=== PATIENT | male | born 1970 | race Caucasian/White ===

== ENCOUNTER → 2022-01-20 13:46 | Outpatient (CLI) | payer MEDICAID, SELFPAY ==
--- NOTE | 2022-01-20 13:51 | CT_ITS ---
FINAL REPORT CLINICAL HISTORY: CIGARETTE SMOKER MOTIVATED TO QUIT SMOKER, 2 PPD X 15 YEARS. EXPOSED TO 2ND HAND SMOKE. FINDINGS: Low-Dose Chest CT Axial images were obtained from the lung apex to the mid abdomen by computed tomography. Low-dose protocol was utilized. CTDI vol (mGy): 2.90 DLP (mGy-cm): 117.77 There is no axillary adenopathy. There is no hilar or mediastinal adenopathy. The heart is proper size. There is a right-sided aortic arch as a normal variant. There is no pericardial or pleural effusion. Limited images of the upper abdomen are unremarkable. Lung window images demonstrate a left lower lobe nodule measuring 5 mm favoring a granuloma or intrafissural lymph node. IMPRESSION: Left lower lobe nodule, likely benign. Lung RADS category 2. Recommend 12 month follow-up low-dose chest CT. Reviewed, Interpreted and Dictated by Juan David Magallon MD Transcribed by Nava Panchal Authenticated and . [facility]
== END ==
PROVIDERS: PCP Family Medicine; Visit Provider Family Medicine
DX: Z87.891 Personal history of nicotine dependence (principal); Z12.2 Encounter for screening for malignant neoplasm of respiratory organs
CPT/HCPCS: 71271

== ENCOUNTER 2022-05-24 17:00 | Outpatient (RCR) | payer MEDICAID, SELFPAY | END 2022-05-24 17:05 | disposition home or self-care (01) | LOC: PT 17:00 | PROVIDERS: PCP Family Medicine; Visit Provider Orthopaedic Surgery | DX: M79.671 Pain in right foot (principal) | CPT/HCPCS: 97012; 97110; 97163 ==

== ENCOUNTER → 2022-06-21 11:19 | Outpatient (CLI) | payer MEDICAID, SELFPAY ==
--- NOTE | 2022-06-21 11:20 | MR_ITS ---
FINAL REPORT TECHNIQUE: Multiplanar and multisequence imaging of the lumbar spine was obtained without contrast. CLINICAL HISTORY: low back pain, numbness and tingling down right leg FINDINGS: There is normal alignment of the lumbar vertebral bodies. Vertebral body height is preserved. The spinal cord ends at the level of L1. There is normal signal intensity within the substance of the distal spinal cord. Bone marrow signal intensity is normal. No acute paraspinal abnormality is identified. L1-2: There is no focal disc herniation, central canal stenosis or neuroforaminal narrowing. L2-3: There is no focal disc herniation, central canal stenosis or neuroforaminal narrowing. L3-4: There is mild bilateral foraminal narrowing related to facet osteoarthropathy. L4-5: An annular bulge is present with degenerative endplate changes and facet osteoarthropathy. There is severe central stenosis and bilateral neural foraminal narrowing. L5-S1: An annular bulge is present with degenerative endplate changes and facet osteoarthropathy. There is moderate to severe central stenosis and bilateral neural foraminal narrowing. IMPRESSION: Multilevel degenerative disc disease, most pronounced at L4-5. Reviewed, Interpreted and Dictated by Melina Gant MD Transcribed by Jane Marcus Authenticated and [facility]
== END ==
PROVIDERS: PCP Emergency Medicine; Visit Provider Emergency Medicine
DX: M54.50 Low back pain, unspecified (principal)
CPT/HCPCS: 72148; 76376

== ENCOUNTER → 2022-08-03 10:51 | Outpatient (POV) | payer MEDICAID, SELFPAY ==
[2022-08-03 11:20] VITALS: BP 156/107; PULSE 77; RESP 18; O2SAT 98; BMI 20.2
--- NOTE | 2022-08-03 12:11 | EXP.PAIN.OV ---
HPI Data of Consult Patient: new to practice Consult date: 08/03/22 Requesting Physician: Renee Ch APRN Primary Care Provider: Karlo Riley MD Consult Narrative Reason for consult: Low back pain, right hip pain, right leg pain History of present illness: Mr. Murry is a 51 year old male who presents today as a new patient. He is a referral from Dr. Riley's office. Today he rates his pain a 7 out of 10. Patient states his pain is all in his low back with radiating symptoms into his right hip and leg as well as right foot numbness. Patient states this has been going on for several years and is unrelated to any specific injury or trauma. He does describe it as a constant dull ache with occasional sharp pains depending on his positioning. He does state that driving frequently worsens his pain. He does have difficulty performing activities of daily living such as cooking and cleaning due to his symptoms. Patient has done and completed 6 weeks of physical therapy and he states it has helped. He states he has used [id number] ibuprofen and Tylenol along with lidocaine patches with minimal improvement. He is currently managed with Percocet 7.5 mg 3 times a day, Celebrex 200 mg twice daily and gabapentin 100 mg 3 times [address] day [address] Dr[address] Riley's office. Patient denies any side effects from these medications. He states that Dr. Riley is sending him to a orthospine surgeon there at [place]. He states that he does have an upcoming appointment in the next couple of weeks. His [place] is [phone]. Its been reviewed and appropriate. CC: Renee Ch APRN [facility] Disclaimer: The information contained in this section may have been updated after the patient was seen, as this information can be updated by other users. Medical History Right tennis elbow Family History Other Family history of COPD (chronic obstructive pulmonary disease) Family history of diabetes mellitus type II Social History (Updated 08/03/22 @ 11:20 by Mary Mendoaz RN) Smoking Status: Current every day smoker tobacco type: cigarettes packs per day: 1 alcohol intake: current current occupational status: employed Travel in the last 8 weeks: None Review of Systems Review of Systems Review of systems:: pertinent systems reviewed and negative unless documented below Review of systems (narrative): Review of Systems: General: No recent weight changes, no fever, no sleep disturbances Respiratory: No cough, no shortness of air, no recurring pulmonary infections Cardiovascular/peripheral vascular: No chest pain, no palpitations, no edema, no shortness of breath Gastrointestinal: No new onset incontinence, normal bowel movements reported Genitourinary: No new onset incontinence Musculoskeletal: Low back pain, right leg pain, right hip pain Psychiatric: [Normal mood/affect] Neurological: [Denies weakness in extremities], [denies balance issues] Meds Home Medications and Allergies Home Medications Medication Instructions Recorded Confirmed Type celecoxib 200 mg capsule 200 mg PO BID Pain 06/05/22 08/03/22 History sildenafil 100 mg tablet 100 mg PO NEEDED PRN N/A 06/05/22 08/03/22 History gabapentin 100 mg capsule 100 mg PO TID Pain 08/03/22 08/03/22 History oxycodone-acetaminophen 7.5 mg-325 1 tab PO TID Pain 08/03/22 08/03/22 History mg tablet (Percocet) New Prescriptions to Start Prescriptions: Allergies Allergy/AdvReac Type Severity Reaction Status Date / Time No Known Allergies Allergy Verified 07/03/22 13:57 Objective Vital signs: Pulse Resp BP Pulse Ox 77 18 156/107 H 98 08/03/22 11:20 08/03/22 11:20 08/03/22 11:20 08/03/22 11:20 Narrative: Physical Exam: General: Alert and oriented x3, no acute distress, pleasant and cooperative Lungs: Respirations even and unlabored, symm
== END ==
PROVIDERS: PCP Emergency Medicine; Visit Provider Nurse Practitioner Family
DX: M51.16 Intervertebral disc disorders with radiculopathy, lumbar region (principal); M48.062 Spinal stenosis, lumbar region with neurogenic claudication; M79.604 Pain in right leg; M25.551 Pain in right hip
CPT/HCPCS: 99202; G0463

== ENCOUNTER → 2022-11-01 11:00 | Outpatient (CLI) | payer MEDICAID, SELFPAY ==
[2022-11-01 18:58] LABS: Basophils % 0.3 % (0.1-2.0); Eosinophils # 0.4 K/mm3 (0.0-0.4); Eosinophils % 4.8 % (0.1-12.0); Hematocrit 40.4 % (42.0-52.0); Hemoglobin 12.9 g/dL (14.1-18.0); Lymphocytes # 2.7 K/mm3 (0.7-4.5); Lymphocytes % 28.9 % (10-50); Mean Corpuscular HGB Conc 31.9 g/dL (31.8-35.4); Mean Corpuscular Hemoglobin 32.2 pg (27.0-31.2); Mean Corpuscular Volume 100.9 fl (80-94); Monocytes # 0.8 K/mm3 (0.1-1.0); Monocytes % 8.6 % (1.7-9.3); Neutrophils # 5.3 K/mm3 (1.8-7.8); Neutrophils % 57.3 % (37.0-80.0); Platelet Count 383 K/mm3 (142-424); Red Cell Distribution Width 12.1 % (11.5-17.5); White Blood Count 9.2 K/mm3 (4.8-10.8)
[2022-11-01 19:12] LABS: Alanine Aminotransferase 22 U/L (12-78); Albumin Level 4.4 g/dl (3.5-5.0); Albumin/Globulin Ratio 1.7 (1.1-1.8); Alkaline Phosphatase 81 U/L (38-126); Aspartate Amino Transferase 38 U/L (17-59); Bilirubin,Total 0.3 mg/dl (0.2-1.3); Blood Urea Nitrogen 6 mg/dl (9-20); Calcium 9.2 mg/dl (8.4-10.2); Carbon Dioxide 29 mmol/L (22.0-30.0); Chloride 107 mmol/L (98-107); Chol/HDL Ratio 2.6 (1-3.5); Cholesterol 204 mg/dl (140-200); Estimated Glomerular Filt Rate 143 ml/min (>60); GFR (African American) 173 ML/MIN (>60); Globulin 2.6 g/dL (1.3-3.2); Glucose 104 mg/dl (74-100); HDL Cholesterol 79 mg/dl (40-60); Sodium 142 mmol/L (136-145); Triglycerides 51 mg/dl (30-150); VLDL Cholesterol 10 mg/dL (0-40)
[2022-11-01 19:34] LABS: Direct LDL Cholesterol 107.69 mg/dL (100-129)
[2022-11-01 19:35] LABS: Free T4 (Free Thyroxine) 1.04 ng/dl (0.78-2.19)
[2022-11-01 19:40] LABS: 25-OH Vitamin D, Total 21.5 ng/mL (30-100)
[2022-11-01 19:46] LABS: Prostate Specific Ag Screen 0.4 ng/ml (0.0-4.0)
[2022-11-02 14:57] LABS: Iron 80 ug/dL (49-181)
[2022-11-02 15:06] LABS: Total Iron Binding Capacity 175 ug/dL (261-462)
[2022-11-02 15:33] LABS: Ferritin 207 ng/ml (17.9-464)
== END ==
PROVIDERS: PCP Emergency Medicine; Visit Provider Emergency Medicine
DX: M51.36 Other intervertebral disc degeneration, lumbar region (principal); D64.9 Anemia, unspecified; Z72.0 Tobacco use; Z12.5 Encounter for screening for malignant neoplasm of prostate; E55.9 Vitamin D deficiency, unspecified
CPT/HCPCS: 80053; 80061; 82306; 82728; 83540; 83550; 84439; 84443; 85025; G0103

== ENCOUNTER 2023-04-27 09:41 | Outpatient (CLI) | payer MEDICAID, SELFPAY ==
[2023-04-27 23:51] LABS: Amphetamine/Metha Screen,Urine Negative ng/ml (<1000); Barbiturates Screen,Urine Negative ng/ml (<200); Benzodiazepines Screen,Urine Negative ng/ml (<200); Cannabinoid Screen,Urine Negative ng/ml (<50); Cocaine Screen,Urine Negative ng/ml (<300); Methadone Screen,Urine Negative ng/ml (<300); Opiate Screen,Urine Negative ng/ml (<300); Phencyclidine Screen,Urine Negative ng/ml (<25)
[2023-05-02 09:14] LABS: Opiates Negative (Cutoff=100); Oxycodone (GC/MS) 2743 ng/mL (Cutoff=100); Oxymorphone (GC/MS) 1602 ng/mL (Cutoff=100)
== END 2023-04-27 23:59 ==
LOC: LAB.DROPOF 04-28 09:42
PROVIDERS: PCP Internal Medicine; Visit Provider Internal Medicine
DX: Z79.899 Other long term (current) drug therapy (principal); M51.16 Intervertebral disc disorders with radiculopathy, lumbar region
CPT/HCPCS: 80307; 80361; 80365; G0480

== ENCOUNTER 2023-05-22 21:21 | Outpatient (CLI) | payer MEDICAID, SELFPAY ==
[2023-05-22 19:34] LABS: Vitamin B12 701 pg/mL (239-931)
== END 2023-05-22 23:59 ==
LOC: LAB.DROPOF 21:22
PROVIDERS: PCP Internal Medicine; Visit Provider Internal Medicine
DX: E53.8 Deficiency of other specified B group vitamins (principal)
CPT/HCPCS: 82607

== ENCOUNTER 2023-08-14 18:00 | Outpatient (CLI) | payer MEDICAID, SELFPAY ==
[2023-08-14 18:32] LABS: Basophils % 0.4 % (0.1-2.0); Eosinophils # 0.1 K/mm3 (0.0-0.4); Lymphocytes # 2.9 K/mm3 (0.7-4.5); Mean Corpuscular HGB Conc 31.7 g/dL (31.8-35.4); Mean Corpuscular Hemoglobin 32.9 pg (27.0-31.2); Mean Corpuscular Volume 103.7 fl (80-94); Mean Platelet Volume 7.6 fl (7.4-10.4); Monocytes # 0.5 K/mm3 (0.1-1.0); Monocytes % 5.5 % (1.7-9.3); Neutrophils # 4.9 K/mm3 (1.8-7.8); Neutrophils % 59.1 % (37.0-80.0); Platelet Count 416 K/mm3 (142-424); Red Blood Count 4.24 M/mm3 (4.60-6.20); Red Cell Distribution Width 12.6 % (11.5-17.5); White Blood Count 8.4 K/mm3 (4.8-10.8)
[2023-08-14 19:00] LABS: Alanine Aminotransferase 21 U/L (12-78); Albumin Level 4.6 g/dl (3.5-5.0); Albumin/Globulin Ratio 1.9 (1.1-1.8); Alkaline Phosphatase 66 U/L (38-126); Anion Gap 11.7 mEq/L (5-15); Aspartate Amino Transferase 34 U/L (17-59); Bilirubin,Total 0.5 mg/dl (0.2-1.3); Blood Urea Nitrogen 5 mg/dl (9-20); Carbon Dioxide 30 mmol/L (22.0-30.0); Chloride 105 mmol/L (98-107); Estimated Glomerular Filt Rate 142 ml/min (>60); GFR (African American) 172 ML/MIN (>60); Globulin 2.4 g/dL (1.3-3.2); Glucose 88 mg/dl (74-100); Potassium 4.7 mmoL/L (3.5-5.1); Sodium 142 mmol/L (136-145)
[2023-08-14 19:11] LABS: 25-OH Vitamin D, Total 97.5 ng/mL (30-100)
[2023-08-14 20:06] LABS: Vitamin B12 785 pg/mL (239-931)
[2023-08-14 20:08] LABS: Folate > 20.00 ng/mL
[2023-08-14 20:16] LABS: Iron 111 ug/dL (49-181)
[2023-08-14 20:26] LABS: Total Iron Binding Capacity 154 ug/dL (261-462)
[2023-08-14 20:53] LABS: Ferritin 160 ng/ml (17.9-464)
[2023-08-16 17:55] LABS: Peripheral Smear Review Scanned Result
== END 2023-08-14 23:59 | disposition home or self-care (01) ==
LOC: LAB.DROPOF 08-15 10:16
PROVIDERS: PCP Internal Medicine; Visit Provider Internal Medicine
DX: R53.83 Other fatigue (principal); D64.9 Anemia, unspecified
CPT/HCPCS: 80053; 82306; 82607; 82728; 82746; 83540; 83550; 85025

== ENCOUNTER 2023-09-11 18:00 | Outpatient (CLI) | payer MEDICAID, SELFPAY ==
[2023-09-11 18:53] LABS: Basophils % 0.5 % (0.1-2.0); Eosinophils # 0.2 K/mm3 (0.0-0.4); Hematocrit 42.6 % (42.0-52.0); Hemoglobin 13.3 g/dL (14.1-18.0); Lymphocytes # 2.5 K/mm3 (0.7-4.5); Lymphocytes % 29.6 % (10-50); Mean Corpuscular HGB Conc 31.2 g/dL (31.8-35.4); Mean Corpuscular Hemoglobin 32.5 pg (27.0-31.2); Mean Platelet Volume 8.4 fl (7.4-10.4); Monocytes # 0.6 K/mm3 (0.1-1.0); Monocytes % 6.9 % (1.7-9.3); Neutrophils # 5.2 K/mm3 (1.8-7.8); Platelet Count 453 K/mm3 (142-424); Red Blood Count 4.09 M/mm3 (4.60-6.20); Red Cell Distribution Width 12.5 % (11.5-17.5); White Blood Count 8.5 K/mm3 (4.8-10.8)
== END 2023-09-11 23:59 | disposition home or self-care (01) ==
LOC: LAB.DROPOF 09-12 09:22
PROVIDERS: PCP Internal Medicine; Visit Provider Internal Medicine
DX: D64.9 Anemia, unspecified (principal)
CPT/HCPCS: 85025

== ENCOUNTER 2023-10-05 15:23 | Outpatient (CLI) | payer MEDICAID, SELFPAY ==
--- NOTE | 2023-10-05 15:24 | CT_ITS ---
FINAL REPORT TECHNIQUE: Thin section axial images were obtained from the lung apices to the upper abdomen by computed tomography. Reformatted images were obtained and reviewed. This study was performed with techniques to keep radiation doses al low as reasonably achievable (ALARA). Individualized dose reduction techniques using automated exposure control or adjustment of mA and/or kV according to the patient's size were employed. 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 There is no axillary adenopathy. There is no mediastinal or hilar mass or adenopathy. The heart is normal in size. There is no pericardial or pleural effusion. There is mild emphysema and mild pulmonary scarring. There is a 4 mm nodule at the left major fissure which is stable. Limited images of the upper abdomen are unremarkable. IMPRESSION: Lung-RADS category 1. Recommend 12 month follow up low dose chest CT. Reviewed, Interpreted and Dictated by Harish James III, MD Transcribed by Jane Marcus Authenticated and . [facility]
== END 2023-10-05 23:59 | disposition home or self-care (01) ==
LOC: RAD 15:24
PROVIDERS: PCP Internal Medicine; Visit Provider Internal Medicine
DX: F17.210 Nicotine dependence, cigarettes, uncomplicated (principal)
CPT/HCPCS: 71271

== ENCOUNTER 2024-01-10 09:57 | Day surgery (SDC) | payer MEDICAID, SELFPAY ==
[2024-01-03 13:06] VITALS: BMI 19.0
--- NOTE | 2024-01-10 10:14 | P.PNANES_ITS ---
[facility] Disclaimer: The information contained in this section may have been updated after the patient was seen, as this information can be updated by other users. Medical History Right tennis elbow Surgical History No history of previous surgery Family History Other Family history of COPD (chronic obstructive pulmonary disease) Family history of diabetes mellitus type II Social History Smoking Status: Current every day smoker tobacco type: cigarettes packs per day: 1 alcohol intake: never substance use type: denies use current occupational status: employed Travel in the last 8 weeks: None [facility] Anesthesia Checklist Patient Identification Patient Identification: Arm Band and Verbal (Name & ) Structural Data Admitted From: Home Planned Operative Procedure/s: Colonoscopy Consent for Planned Operative Procedure(s) Verified: Yes Verified Documents: Surgical Consent and History and Physical NPO Status Verified Time NPO: 00:00 Additional verifications Anesthesia Reactions: No Airway Assessment Mallampati Score:: Class II C-Spine Mobility Assessed: Yes TMJ Mobility Assessed: Yes Dentition: Poor Dentition Neurological Assessment Level of Consciousness: Awake Hx Seizures: No Numbness or tingling in extremities: No Anesthesia Plan Anesthesia Risk discussed: Yes Anesthesia Plan: Verified ASA Class: II Anesthesia Type: MAC
[2024-01-10 10:19] VITALS: BP 114/76; PULSE 61; RESP 16; TEMP 36.4; O2SAT 98
[2024-01-10] MEDS: LACTATED RINGERS 1000ML 1,000 ML 25 ML IV (10:20)
[2024-01-10 10:32] VITALS: O2SAT 98
[2024-01-10 11:03] VITALS: BP 102/70; PULSE 73; RESP 16; TEMP 36.5; O2SAT 100
--- NOTE | 2024-01-10 11:04 | HMH.PROCNOTE ---
[facility] Procedure Note Date: 01/10/24 Time: 11:04 Procedure Note:: Colonoscopy Procedure Report: Colonoscopy with cold snare polypectomy Endoscopist: Osei Clark II, MD Referring physician: Rick Mahoney MD Date of Procedure: 01/10/2024 Equipment: Olympus 190 variable stiffness pediatric colonoscope Sedation: MAC sedation Indication: Mr. Murry is a 53-year-old gentleman who is here for initial screening colonoscopy. He reports no abdominal pain, weight loss, change in his bowel habits or rectal bleeding. He reports no family history of colon cancer. Procedure: Prior to the procedure, a history and physical exam was performed, and patient's medications and allergies were reviewed. The risks, benefits and alternatives of the sedation and procedure were discussed with the patient. All questions were answered and informed consent was obtained. The patient was brought to the procedure room. Patient identification and proposed procedure were verified by the physician and the nurse. The patient was placed in a left lateral decubitus position and the scope was passed under direct vision. Throughout the procedure, the patient's blood pressure, pulse, and oxygen saturations were monitored continuously. The colonoscopy was accomplished without difficulty. The patient tolerated the procedure well. Findings: On digital rectal examination there was normal rectal tone. There were no external hemorrhoids. The colonoscope was introduced through the anal canal to the rectum and advanced to the cecum. The ileocecal valve and appendiceal orifice were identified. The scope was advanced a short distance into the ileum which appeared grossly normal. The scope was then withdrawn into the colon. There were 2 colon polyps identified in the rectosigmoid. These were 4 and 6 mm in size and were both removed via cold snare polypectomy. There were scattered diverticuli throughout the descending and sigmoid colon (LEFT colon). The rectum itself was normal. Upon retroflexion within the rectum there were grade 1 internal hemorrhoids.The preparation was excellent throughout with Campbell Preparation Score of 8 out of 9. The cecal time was 10 minutes. Impression: 1. Rectosigmoid polyps x 2 (4 and 6 mm) 2. Left-sided diverticulosis (mild) 3. Grade 1 internal hemorrhoids Plan: I will follow up the polyp pathology and recommend repeat colonoscopy again in 7 years based upon the polyp histology. I would encourage fiber supplementation on a long-term daily maintenance basis.
[2024-01-10 11:13] VITALS: BP 124/80; PULSE 66; RESP 18; O2SAT 99
[2024-01-10 11:23] VITALS: BP 138/84; PULSE 71; RESP 16; O2SAT 100
[2024-01-10 11:33] VITALS: BP 116/78; PULSE 62; RESP 16; O2SAT 98
== END 2024-01-10 11:43 | disposition home or self-care (01) ==
PROVIDERS: PCP Internal Medicine; Visit Provider Internal Medicine Gastroenterology
PROC: (CPT 45385; principal; 2024-01-10 11:00)
DX: Z12.11 Encounter for screening for malignant neoplasm of colon (principal); K62.1 Rectal polyp; K57.30 Diverticulosis of large intestine without perforation or abscess without bleeding; K64.0 First degree hemorrhoids
CPT/HCPCS: 45385; J7120